=== PATIENT | female | born 1955 | race Caucasian/White ===

== ENCOUNTER 2016-11-13 13:02 | Inpatient (IN) | payer OTHER ==
[~2016-11-13] VITALS: Ht 162.6 cm; Wt 52.3 kg
--- NOTE | ~2016-11-13 | EKG ---
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
--- NOTE | ~2016-11-13 | HC ---
[facility] [place] [address] CONSULTATION Name: ANITA SCANLON NUNO Room #: 209-P ADM IN M.R.#: [id number] Admission: 11/13/16 Attend Phys: Gian Burton MD Discharge: Date of : 59 Report #: [id number] THIS REPORT FOR: //name// CC: FAM unknown Gian Burton DATE OF SERVICE: 11/14/2016 INFECTIOUS DISEASE CONSULTATION ATTENDING PHYSICIAN: Gian Burton M.D. REASON FOR CONSULTATION: Antibiotic management. HISTORY OF PRESENT ILLNESS: The patient is a 61-year-old white woman admitted through the emergency room with a history of increasing shortness of air and some chest discomfort. The patient is a rather poor historian that answers to all my questions with tangential answers and not directing herself to the point. When I query her about cigarette smoking, she tells me she grew around smokers, but it turns out she is still smoking. 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 I query her about COPD and it appears she does have this. I queried her about the lung cancer and she knows about this, but it appears that had not sunk in into her memory the fact that she was advised about this possibility. At present, she is short winded and she is always short of breath. No chest pain, nausea, vomiting or diarrhea. PAST MEDICAL HISTORY: Tuberculosis at age 18, diagnosed in [place]. Cigarette smoking. COPD. Recently advised she had pulmonary masses and liver metastasis, but no biopsy was obtained. Hospitalized at [facility], 08/2015, with possible pneumonia, gastroesophageal reflux, hypertension and glaucoma. Recently advised she may have lung cancer, as stated above. She is diagnosed to have liver metastasis. SOCIAL HISTORY: She is a . She continues to smoke cigarettes. She tells me she lives by herself. DRUG ALLERGIES: POVIDONE-IODINE, SERTRALINE and SOAP WITH BETADINE. MEDICATIONS: She is on treatment with vancomycin 500 mg IV daily, Zosyn 2.25 g IV every 6 hours and Levaquin 750 mg IV every 48 hours and I believe she received only a single dose. She is also on aspirin, nicotine patch, pantoprazole, alprazolam p.r.n. and methylprednisolone 62.5 mg IV 2 times daily. She also receives guaifenesin, enoxaparin for DVT prophylaxis and docusate. She is on D-5 normal saline at 1000 mL every 8 hours and p.r.n. acetaminophen. [address] [address] CONSULTATION Name: ANITA SCANLON NUNO Room #: 209-P [facility] IN M.R.#: [id number] Admission: 11/13/16 Attend Phys: Gian Burton MD Discharge: Date of : 59 Report #: [id number] REVIEW OF SYSTEMS: As above and See H and P. PHYSICAL EXAMINATION: GENERAL: Chronically ill-appearing, dyspneic-looking woman presenting with following vital signs. VITAL SIGNS: Temperature 98.4, pulse 108, respirations 20 and BP 99/51. O2 saturation 93% on 4 liters, 88% on 2 liters nasal cannula. HEENT: Pupils reactive. Conjunctivae pale. Mouth edentulous. NECK: Supple. No thyromegaly or lymphadenopathy. LUNGS: Decreased breath sounds throughout. HEART: S1, S2. No gallop or murmur. ABDOMEN: Soft. No masses or megaly. PELVIC: Deferred. RECTAL EXAMINATION: Deferred. EXTREMITIES: No clubbing or cyanosis. NEUROLOGIC: Grossly within normal limits. LABORATORY DATA: Sodium 142, potassium 5.7, BUN 46 and creatinine 2.2. SGOT 50, alkaline phosphatase and SGPT 25. Albumin 2.8. Troponin mildly elevated at 1.8. Lipids were obtained. WBC 10.6, hemoglobin 15.2 and platelets 215,000. White blood cell count differential reveals 73% neutrophils and 12% lymphocytes. MRSA screen negative. Rapid viral by PCR order and results pending. Being Thursday, we would not have results until next week, I suspect. Urine analysis pending. MICROBIOLOGY DATA: Blood cultures were obtained in an afebrile patient and I suspect, they are not negative. RADIOLOGY EVALUATION: A chest x-ray revealed right lung consolidation and left lower lobe infiltrate and possible pneumonia. A CT scan of the chest revealed a spiculated scar in the left lung apex, several mass-like consolidations of the right lower lobe as well as some hilar adenopathy as well as hypodense lesions in the liver. All these possibly suggest metastatic carcinoma originating in the lungs. The CT scan revealed findings compatible with COPD. ASSESSMENT: 1. Severe chronic obstructive pulmonary disease. 2. History of pulmonary tuberculosis with scarring of the left lung apex. 3. Possible right lung malignancy with liver metastasis. 4. Acute kidney injury, improving with hydration. 5. Hypoalbuminemia. 6. Possibly mild cognitive impairment. SUGGESTIONS AND RECOMMENDATIONS: Continue treatment with combination of Zosyn 2.25 grams IV every 8 hours, Levaquin 500 mg IV daily and vancomycin at the current dose. Try to obtain a sputum culture. Since MRSA screen is negative, [address] [address] CONSULTATION Name: ANITA SCANLON Room #: 209-P ADM IN M.R.#: [id number] Admission: 11/13/16 Attend Phys: Gian Burton MD Discharge: Date of : 59 Report #: [id number] possibly we will discontinue vancomycin shortly. We will try to discuss how to proceed with and make a diagnosis of metastatic cancer and I agree with Dr. Jak Peters. Possibly a liver biopsy will be one way of obtaining this. Dr. Burton, thank you for requesting my suggestions in the care of your patient. <ELECTRONICALLY SIGNED> By: Josafat Alvarez MD 11/18/16 1227 0920 1112 Josafat Alvarez MD /nt
--- NOTE | ~2016-11-13 | HC ---
[facility] [place] [address] CONSULTATION Name: SCANLONANITA NUNO Room #: 209-P ADM IN M.R.#: [id number] Admission: 11/13/16 Attend Phys: Gian Burton MD Discharge: Date of : 59 Report #: [id number] THIS REPORT FOR: //name// CC: FAM unknown Gian Burton REASON FOR CONSULTATION: Elevated troponin. HISTORY OF PRESENT ILLNESS: The patient is a 61-year-old woman who presented with malaise, weakness and poor oral intake. She also had increasing shortness of breath. Her history includes oxygen dependent lung disease. She has been recently evaluated for a lung mass by Dr. Lawson in the [facility] system. She has been told that this is a terminal process. She also tells me that no issue diagnosis has been made. Her presenting CT scan suggested pretracheal and subcarinal adenopathy as well as right and mass and right lung infiltrate. Innumerable liver lesions are evident, most likely representing metastatic disease. In this setting, in the absence of pain or pressure, a troponin was ordered and elevated at 1.81. I was asked to see her in this regard. She reports of told of having a "heart attack" may be 20 years ago. No specific diagnostic testing was performed either then or more recently. She denies chest pain or pressure. She has had a nonproductive cough and shortness of breath. Her shortness of breath is really no different than it has been over the past couple of weeks. ALLERGIES: She is allergic to IODINE, BETADINE, and SERTRALINE. MEDICATIONS: Include prednisone, Advair, albuterol, and alprazolam. PAST MEDICAL HISTORY: Medical records have been reviewed and include a history of COPD, remote tuberculosis, glaucoma, hypertension, appendectomy, hysterectomy, laparoscopic cholecystectomy and reflux disease. SOCIAL HISTORY: She is . 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 FAMILY HISTORY: Unremarkable for premature coronary disease. REVIEW OF SYSTEMS: All systems negative except as that noted above. PHYSICAL EXAMINATION: GENERAL: A frail, chronically ill-appearing woman. VITAL SIGNS: Blood pressure is 81/51, heart rate of 100 and regular. She is afebrile, 5 feet 4 inches tall, 105 pounds. HEENT: There is neither xanthelasma, subcutaneous xanthomata, oral mucosal, digital cyanosis or kyphoscoliosis present. CHEST: Reveals diminished breath sounds at both bases. CARDIOVASCULAR: Regular rate and rhythm with a normal S1, S2. Jugular venous [address] [address] CONSULTATION Name: ANITA SCANLON NUNO Room #: 209-P [facility] IN M.R.#: [id number] Admission: 11/13/16 Attend Phys: Gian Burton MD Discharge: Date of : 59 Report #: [id number] pressure is not elevated. ABDOMEN: Soft and nontender. EXTREMITIES: Without cyanosis, clubbing or edema. Radial pulses are 2+. NEUROLOGIC: She is alert, intermittently confused, although will answer questions, nonfocal exam. LABORATORY DATA: Sodium 142, potassium 5.7, creatinine 2.2, creatinine was 1.3 in August 2015. Albumin 2.8, troponin 1.81. White count 10.6, hemoglobin 15, hematocrit 47, platelet count 215. RADIOLOGICAL DATA: Chest x-ray demonstrates right lung consolidation, left lower lung infiltrate. CAT scan demonstrates subpleural spiculated scarring of the left lung apex. There are several mass-like consolidations involving the right lower lobe. There is patchy infiltrate bilaterally. Emphysema is noted. No pericardial effusion. Innumerable hypodense lesions of the liver. EKG sinus rhythm with right bundle branch block, nonspecific T-wave abnormality. IMPRESSION: 1. Non-Q-wave myocardial infarction, probably related to supply demand mismatch in the setting of pneumonia and widely metastatic cancer. 2. Acute kidney injury. 3. Metastatic cancer, probably lung cancer without tissue diagnosis as of yet or rendered therapy. 4. Chronic obstructive pulmonary disease, oxygen dependent. 5. History of hypertension. 6. Tobacco dependency. RECOMMENDATIONS: 1. Low dose daily aspirin. 2. Exclude pericardial effusion, assess left ventricular systolic function by echocardiography. 3. Medical therapy for possible coronary disease is recommended. Given her multiple comorbidities and probable short life expectancy, I do not think there is any mortality advantage to additional cardiovascular testing, especially in the absence of specific symptoms; however, if surgical intervention is needed for her lung cancer, assessment of her coronary arteries would be needed ahead of any thoracotomy or major surgical procedure. I have discussed these issues with the patient, although I am not sure how much insight she has into the nature of her multiple comorbidities. She does tell me that she understands that she has a terminal illness. [facility] [address] [place] [address] CONSULTATION Name: ANITA SCANLON Room #: 209-P [facility] IN M.R.#: [id number] Admission: 11/13/16 Attend Phys: Gian Burton MD Discharge: Date of : 59 Report #: [id number] Thank you for asking me to participate in the care of this unfortunate woman. <ELECTRONICALLY SIGNED> By: Cong Stanford MD, FACC 11/17/16824 194 5 Cong Stanford MD, FACC /nt
--- NOTE | ~2016-11-13 | 2DMMODE ---
[facility] [address] 2 D/M-MODE ECHOCARDIOGRAM Name: ANITA SCANLON NUNO Room #: 209-P [facility] IN .R.#: [id number] Admission: 11/13/16 Attend Phys: Kim Garcia Discharge: Date of : 59 Date of Service: 11/14/16 [facility] Report #: [id number] THIS REPORT FOR: //name// Transthoracic Echocardiography Ordering physician: Cnog Stanford M.D., F.A.C.C. Referring physician: Cong Stanford M.D., F.A.C.C. Internet Sales Manager: Mickie Arguello Indications/History: DE. Hx: COPD BP: 99 / 51 HR: 108bpm Height: 64in Weight: 105.8lb Study data: M-mode, complete 2D, complete spectral Doppler, and color Doppler. Location: Echo laboratory. Routine. Image quality was fair. The study was technically limited due to poor acoustic window availability. Patient did not tolerate exam well. Low parasternal window and off axisapical windows. Not all measurements taken. 2D measurements Normal Normal LVID ED 42.8mm 36-57 IVS ED 7.6mm 6-11 LVID ES 31.7mm 23-40 LVPW ED 10mm 6-11 LA volume index 16-28 AoRoot diam ED 28.5mm 21-37 LVOT diameter 19mm 18-23 Findings: Left ventricle: The cavity size was normal. Wall thickness was normal. Systolic function was normal. The estimated ejection fraction was in the range of 50% to 55%. Wall motion was normal. Right ventricle: The cavity size appeareddilated. Systolic function was difficult to assess but appeared reduced.. Right atrium: The atriumappeared dilated. Left atrium: The atrium was normal in size. Aortic valve: Structurally normal valve. Doppler: There was no stenosis. Trivial regurgitation. Peak velocity: 129.3cm/s (S). [facility] [address] [place] [address] 2 D/M-MODE ECHOCARDIOGRAM Name: ANITA SCANLON Room #: 209-P ADM IN Sotero.#: [id number] Admission: 11/13/16 Attend Phys: Kim Garcia Discharge: Date of : 59 Date of Service: 11/14/16 [facility] Report #: [id number] Mitral valve: The valve appears to be grossly normal. Doppler: There was no evidence for stenosis. No regurgitation. Peak E-wave velocity: 76.7cm/s. Peak gradient: 2.4mm Hg (D). Peak A-wave velocity: 84.8cm/s. Tricuspid valve: Structurally normal valve. Doppler: There was no evidence for stenosis. Mild-moderate regurgitation. Regurgitant peak velocity: 360cm/s. Peak RV-RA gradient: 52mm Hg (S). Pulmonic valve: Structurally normal valve. Doppler: There was no evidence for stenosis. No regurgitation. Pericardium: There was no pericardial effusion. Aorta: Aortic root: The aortic root was normal in size. Pulmonary artery: Systolic pressure was estimated to be 60mm Hg. Diastolic function: Doppler parameters are consistent with abnormal left ventricular relaxation (grade 1 diastolic dysfunction). Systemic veins: Inferior vena cava: The vessel was normal in size; the respirophasic diameter changes were blunted (< 50%). Conclusions 1. Left ventricle: Systolic function was normal. The estimated ejection fraction was in the range of 50% to 55%. Wall motion was normal. 2. Right ventricle: The cavity size appeareddilated. Systolic function was difficult to assess but appeared reduced.. 3. Right atrium: The atriumappeared dilated. 4. Aortic valve: Structurally normal valve. There was no stenosis. Trivial regurgitation. 5. Mitral valve: The valve appears to be grossly normal. No regurgitation. 6. Pericardium, extracardiac: There was no pericardial effusion. 7. Pulmonary arteries: Systolic pressure was estimated to be 60mm Hg. <ELECTRONICALLY SIGNED> By: Cong Stanford MD, [facility] 11/14/16 1151 1037 1151 Cong Stanford MD, [facility] /josefa
[~2016-11-13 13:02] MED LIST: ADVAIR 500-501 EACH INH; DUONEB 2.5-0.5 M3 ML INH; LISINOPRIL20 MG PO; MEDROLDOSEPACK PO; MUCUS RELIEF C400 MG PO; PEPCID20 MG PO; PREDNISONE 10 M10 MG PO; PREDNISONE 20 M20 M1 PO; PROAIR HFA8.5 GM; PROTONIX40 M2 PO; PROVENTIL HFA6.7 G1 INH; XANAX 0.5 MG0.5 MG PO; ZANTAC 150MG T150 MG PO; ZPAK PO
[2016-11-13 13:03] VITALS: BP 94/60
[2016-11-13 13:43] LABS: HEMATOCRIT 47.1 % (37.0-47.0); HEMOGLOBIN 15.2 gm/dL (12.0-15.0); MCH 30.1 pg (26.0-34.0); MCHC 32.4 % (28.0-37.0); PLATELET COUNT 215 thou/uL (150-400); RBC 5.07 mil/uL (4.20-5.00); RDW 13.4 % (10.5-14.5); WBC 10.6 thou/uL (4.0-11.0)
[2016-11-13 13:46] LABS: MANUAL DIFF YES
[2016-11-13 13:51] LABS: CALCIUM 9.4 mg/dL (8.5-10.1); CREATININE 2.2 mg/dL (0.6-1.3); POTASSIUM 5.7 mmol/L (3.5-5.1)
[2016-11-13 14:06] LABS: ALBUMIN 2.8 g/dL (3.4-5.0); TOTAL BILIRUBIN 0.3 mg/dL (<0.1-1.0); TOTAL PROTEIN 7.2 g/dL (6.4-8.2)
[2016-11-13 14:13] LABS: ABSOLUTE NEUTROPHILS 7.7 thou/uL (1.4-8.2); ATYPICAL LYMPHS 4 %; PLATELET ESTIMATE NORMAL; TOTAL CELL COUNT 100
[2016-11-13 16:17] VITALS: BP 100/58
[2016-11-13 17:27] VITALS: BP 81/51
[2016-11-13 20:51] VITALS: BP 81/46
[2016-11-14 04:00] VITALS: BP 101/49
[2016-11-14 06:50] LABS: HEMATOCRIT 44.4 % (37.0-47.0); HEMOGLOBIN 14.2 gm/dL (12.0-15.0); MCHC 31.9 % (28.0-37.0); MCV 93.9 fL (80.0-100.0); PLATELET COUNT 211 thou/uL (150-400); RBC 4.73 mil/uL (4.20-5.00); RDW 13.7 % (10.5-14.5); WBC 9.3 thou/uL (4.0-11.0)
[2016-11-14 06:51] LABS: MANUAL DIFF YES
[2016-11-14 07:00] LABS: ANION GAP 8 mmol/L (7-16); BUN 41 mg/dL (7-18); CALCIUM 8.3 mg/dL (8.5-10.1); CHLORIDE 108 mmol/L (98-107); CO2 26 mmol/L (21-32); CREATININE 1.4 mg/dL (0.6-1.3); GLUCOSE 159 mg/dL (70-99); POTASSIUM 5.6 mmol/L (3.5-5.1); SODIUM 142 mmol/L (136-145)
[2016-11-14 07:08] LABS: CHOLESTEROL 131 mg/dL (<200); HDL CHOLESTEROL 27 mg/dL (>40); LDL CHOLESTEROL 66 mg/dL (<100); TC:HDL 4.9 Ratio (Not establshd); TRIGLYCERIDE 192 mg/dL (<150); TROPONIN-I 0.57 ng/mL (<0.04-0.07); VLDL 38 mg/dL (<40)
[2016-11-14 07:16] LABS: ABSOLUTE NEUTROPHILS 8.2 thou/uL (1.4-8.2); PLATELET ESTIMATE NORMAL; TOTAL CELL COUNT 100
[2016-11-14 08:15] VITALS: BP 99/51
[2016-11-14 11:30] VITALS: BP 115/64
[2016-11-14 17:00] VITALS: BP 116/75
[2016-11-14 21:57] VITALS: BP 125/71
[2016-11-15 05:02] LABS: HEMATOCRIT 43.7 % (37.0-47.0); HEMOGLOBIN 13.8 gm/dL (12.0-15.0); MCH 29.8 pg (26.0-34.0); MCHC 31.6 % (28.0-37.0); MCV 94.3 fL (80.0-100.0); RBC 4.63 mil/uL (4.20-5.00); RDW 13.2 % (10.5-14.5); WBC 7.2 thou/uL (4.0-11.0)
[2016-11-15 05:39] VITALS: BP 114/79
[2016-11-15 05:43] LABS: CALCIUM 8.8 mg/dL (8.5-10.1)
[2016-11-15 05:44] LABS: POTASSIUM 4.4 mmol/L (3.5-5.1)
[2016-11-15 08:38] VITALS: BP 118/74
[2016-11-15 11:57] VITALS: BP 119/74
[2016-11-15 14:21] LABS: URINE BILIRUBIN NEGATIVE (Negative); URINE BLOOD 2+ (Negative); URINE COLOR YELLOW; URINE GLUCOSE-RANDOM* NEGATIVE (Negative); URINE KETONES NEGATIVE (Negative); URINE LEUKOCYTES-REFLEX NEGATIVE (Negative); URINE PROTEIN (DIPSTICK) 1+ (Negative); URINE SPECIFIC GRAVITY 1.025 (1.003-1.035); URINE UROBILINOGEN 0.2 E.U./dl (0.2-1.0)
[2016-11-15 14:25] LABS: CASTS None Seen /LPF (None Seen); CRYSTALS None Seen /LPF (None Seen); SQUAMOUS 4-10 Moderate /LPF (0-3)
[2016-11-15 14:26] LABS: HYALINE CASTS 0-3 Few /LPF (None Seen); URINE RBC 3-10 Few /HPF (0-2); URINE WBC-REFLEX 0-5 Rare /HPF (0-5)
[2016-11-15 19:19] VITALS: BP 117/65
[2016-11-16 04:21] VITALS: BP 136/76
[2016-11-16 04:33] LABS: HEMATOCRIT 43.8 % (37.0-47.0); MCH 30.1 pg (26.0-34.0); MCHC 31.9 % (28.0-37.0); MCV 94.5 fL (80.0-100.0); RBC 4.64 mil/uL (4.20-5.00); RDW 14.2 % (10.5-14.5); WBC 7.3 thou/uL (4.0-11.0)
[2016-11-16 04:42] LABS: CALCIUM 8.7 mg/dL (8.5-10.1); CREATININE 0.8 mg/dL (0.6-1.3); POTASSIUM 4.7 mmol/L (3.5-5.1)
[2016-11-16 08:50] VITALS: BP 132/82
[2016-11-16 12:04] VITALS: BP 142/89
[2016-11-16 17:05] VITALS: BP 137/83
[2016-11-16 20:50] VITALS: BP 144/82
[2016-11-17 04:09] VITALS: BP 151/97
[2016-11-17 08:10] VITALS: BP 138/80
[2016-11-17 12:35] VITALS: BP 158/93
[2016-11-17 16:00] VITALS: BP 172/102
[2016-11-17 17:09] LABS: INFLUENZA B Negative (Negative); METAPNEUMOVIRUS Negative (Negative)
[2016-11-17 19:35] VITALS: BP 143/89
[2016-11-17 20:13] VITALS: BP 148/92
[2016-11-18 03:31] LABS: HEMATOCRIT 40.3 % (37.0-47.0); HEMOGLOBIN 13.1 gm/dL (12.0-15.0); MCH 29.5 pg (26.0-34.0); MCHC 32.4 % (28.0-37.0); MCV 90.9 fL (80.0-100.0); RBC 4.43 mil/uL (4.20-5.00); RDW 13.1 % (10.5-14.5); WBC 4.7 thou/uL (4.0-11.0)
[2016-11-18 03:41] LABS: CALCIUM 8.7 mg/dL (8.5-10.1); CREATININE 0.6 mg/dL (0.6-1.3); POTASSIUM 3.2 mmol/L (3.5-5.1)
[2016-11-18 04:00] VITALS: BP 151/94
[2016-11-18 05:10] VITALS: BP 159/90
[2016-11-18 08:10] VITALS: BP 146/90
[2016-11-18] MEDS ORDERED: FENTANYL PA12 MCG/H1 TRANSDERM (08:28)
[2016-11-18] MEDS ORDERED: NEXIUM40 MG PO (08:28)
[2016-11-18] MEDS ORDERED: NICOTINE TRANSD21 M1 TRANSDERM (08:28)
[2016-11-18] MEDS ORDERED: ASPIR 8181 MG PO (08:28)
[2016-11-18] MEDS ORDERED: COLACE 100 MG100 MG PO (08:28)
[2016-11-18 12:10] VITALS: BP 155/92
[2016-11-18] MEDS ORDERED: PREDNISONE 10 M10 MG PO (12:27)
[2016-11-18] MEDS ORDERED: LEVAQUIN 500 M500 M2 PO (12:27)
[2016-11-18 14:02] VITALS: BP 146/90
== END 2016-11-18 15:37 | disposition home health service (06) | DRG 177 ==
LOC: ER 13:02 → 2N 15:09 → EROBS 15:09 → 2N 16:16
PROVIDERS: Emergency Medicine; Family Medicine; Internal Medicine Pulmonary Disease; Nurse Practitioner
DX: J15.6 Pneumonia due to other Gram-negative bacteria (principal); J96.21 Acute and chronic respiratory failure with hypoxia; N17.0 Acute kidney failure with tubular necrosis; C34.90 Malignant neoplasm of unspecified part of unspecified bronchus or lung; R04.2 Hemoptysis; J44.1 Chronic obstructive pulmonary disease with (acute) exacerbation; F17.210 Nicotine dependence, cigarettes, uncomplicated; Z60.2 Problems related to living alone; E88.09 Other disorders of plasma-protein metabolism, not elsewhere classified; J18.9 Pneumonia, unspecified organism; F41.9 Anxiety disorder, unspecified; H40.9 Unspecified glaucoma; K21.9 Gastro-esophageal reflux disease without esophagitis; E86.0 Dehydration; I95.9 Hypotension, unspecified; E87.5 Hyperkalemia; F41.0 Panic disorder [episodic paroxysmal anxiety]; F10.10 Alcohol abuse, uncomplicated; Z91.041 Radiographic dye allergy status; Z90.49 Acquired absence of other specified parts of digestive tract; Z90.710 Acquired absence of both cervix and uterus; Z99.81 Dependence on supplemental oxygen; I25.2 Old myocardial infarction; Z86.11 Personal history of tuberculosis; Z79.899 Other long term (current) drug therapy; Z88.8 Allergy status to other drugs, medicaments and biological substances; Z79.2 Long term (current) use of antibiotics
CPT/HCPCS: 10081; 10797